=== PATIENT | male | born 1960 | race Caucasian/White ===

== ENCOUNTER 2018-11-28 09:33 | Emergency (ER) | payer OTHER ==
[2018-11-28] MEDS ORDERED: Ondansetron PF 4 MG/2 ML Vial ONE (10:17)
[2018-11-28] MEDS ORDERED: Ketorolac Tromethamine 30 MG/ML VIAL ONE (10:17)
[2018-11-28 10:37] LABS: #Basophils 0.1 thou/uL (0.0-0.2); #Eosinphils 0.3 thou/uL (0.0-0.7); #Lymphocytes 1.6 thou/uL (1.20-3.40); #Monocytes 0.4 thou/uL (0.11-0.59); #Neutrophils 3.6 thou/uL (1.40-6.50); %Basophils 1.5 % (0.0-1.0); %Eosinophils 4.2 % (0.0-10.0); %Lymphocytes 27.6 % (21.0-51.0); %Monocytes 6.8 % (0.0-10.0); %Neutrophils 59.9 % (42.0-75.0); Hemoglobin 14.9 g/dL (14.0-18.0); Mean Corpuscular HGB CONC 35.1 g/dL (32.0-36.0); Mean Corpuscular Volume 85.5 fL (78.0-98.0); Mean Platelet Volume 8.3 fL (7.4-10.4); Platelet Count 175 thou/uL (130-400); RBC Distribution Width 11.5 % (11.5-14.5); Red Blood Cell (RBC) Count 4.95 mill/uL (4.70-6.10)
[2018-11-28 10:38] LABS: Bilirubin Negative (Negative); Blood, Urine Negative (Negative); Glucose, Urine (Dipstick) 250 mg/dL (Negative); Leukocyte Negative (Negative); Nitrite Negative (Negative); Protein, Urine (Dipstick) Negative (Neg-Trace); Urobilinogen 0.2 mg/dL (0.2-1.0)
[2018-11-28 10:39] LABS: Clarity Clear (Clear)
[2018-11-28 11:25] LABS: ALT (SGPT) 30 U/L (8-55); AST (SGOT) 35 U/L (5-34); Albumin 4.3 g/dL (3.5-5.0); Alkaline Phosphatase 65 U/L (40-150); Anion Gap 18 mmol/L (10-20); BUN (Urea Nitrogen) 13 mg/dL (8.4-25.7); Bilirubin, Total 0.5 mg/dL (0.2-1.2); Calc. Creatinine Clearance 0 mL/min (70-130); Calcium 9.4 mg/dL (7.8-10.44); Carbon Dioxide 21 mmol/L (22-29); Chloride 104 mmol/L (98-107); Estimated GFR-MDRD 83; Glucose 173 mg/dL (70-105); Potassium 5.6 mmol/L (3.5-5.1); Protein, Total 7.3 g/dL (6.0-8.3); Sodium 137 mmol/L (136-145)
--- NOTE | 2018-11-28 12:22 | CT ---
CT ABDOMEN AND PELVIS WITHOUT IV CONTRAST: Multiple axial tomograms were obtained through the abdomen and pelvis without IV enhancement. Oral c ontrast was not given. INDICATION: Abdominal pain. Left flank pain. History of kidney stones. FINDINGS: Lung bases clear. Liver, spleen, and pancreas unremarkable. Adrenal glands normal. There are numerous tiny nonobstructing calculi in the upper collecting structures of both kidneys. T hese numerous calculi measure in the 1-2 mm range and are too numerous to count. There is no evidence of hydronephrosis. The ureters are normal caliber. Urinary bladder is mildly d istended and appears unremarkable. Small bowel loops appear normal. Appendix appears normal. Colon unremarkable. No evidence of diver ticulitis. Aorta normal caliber. There is degenerative spine change. Prominent degenerative change results in central canal stenosis at L4-5. IMPRESSION: Numerous tiny nonobstructing calculi in the upper collecting structures of both kidneys. There is no evidence of ureteral calculus or hydronephrosis. No other evidence of acute process. POS: [facility]
== END 2018-11-28 12:50 | disposition home or self-care (01) ==
LOC: ERS 09:33
DX: N20.0 Calculus of kidney (principal); E87.6 Hypokalemia; F17.210 Nicotine dependence, cigarettes, uncomplicated; E11.9 Type 2 diabetes mellitus without complications; Z87.442 Personal history of urinary calculi; Z79.891 Long term (current) use of opiate analgesic
CPT/HCPCS: 74176; 80053; 81003; 85025; 87086; 96361; 96374; 96375; J1885; J2405

== ENCOUNTER 2019-01-13 13:50 | Emergency (ER) | payer OTHER ==
--- NOTE | 2019-01-13 16:00 | CT ---
CT BRAIN WITHOUT CONTRAST: INDICATIONS: Hit in head at work with a pipe. The patient was wearing a hard hat, with right-sided head pain. COMPARISON: None. FINDINGS: The skull and extracranial soft tissues appear within normal limits. The mastoid air cells and paran holly sinuses appear clear. No definite acute infarct, hemorrhage, or hydrocephalus is present. There is mild chronic small vess el white matter ischemic change. No midline shift is evident. IMPRESSION: No acute intracranial abnormality. POS: [facility]
--- NOTE | 2019-01-13 16:05 | CT ---
CT CERVICAL SPINE WITHOUT CONTRAST: 01/13/19 INDICATION: Hit in head with a pipe at work with neck pain. COMPARISON: None. FINDINGS: There is advanced disc degenerative disease at C5-6 and C6-7. There is slight anterior translation of C4 on C5. There is multilevel facet osteoarthritic change. No acute fracture or subluxation is evide nt. Osseous central canal appears relatively well preserved. Prevertebral soft tissues appear within normal limits. Craniocervical junction appears within normal limits. IMPRESSION: 1. No acute osseous abnormality. 2. Moderate spondylosis of the cervical spine with anterior translation of C4 on C5 which is lik manuel degenerative in nature. POS: [facility]
== END 2019-01-13 17:30 | disposition home or self-care (01) ==
LOC: ERS 13:50
DX: S09.90XA Unspecified injury of head, initial encounter (principal); E11.9 Type 2 diabetes mellitus without complications; F17.210 Nicotine dependence, cigarettes, uncomplicated; Z79.899 Other long term (current) drug therapy; W22.8XXA Striking against or struck by other objects, initial encounter
CPT/HCPCS: 70450; 72125

== ENCOUNTER 2019-06-27 13:37 | Emergency (ER) | payer OTHER ==
--- NOTE | 2019-06-27 14:19 | RAD ---
EXAM: 2 views of the right tibia/fibula HISTORY: Leg pain after injury yesterday COMPARISON: None FINDINGS: There is no evidence of acute fracture or dislocation. No soft tissue swelling is seen. No degenerative changes are seen in the knee or ankle. IMPRESSION: No evidence of acute osseous abnormality.
--- NOTE | 2019-06-27 14:20 | RAD ---
EXAM: 3 views of the right foot HISTORY: Foot pain after injury yesterday COMPARISON: None FINDINGS: 3 views of the right foot shows no evidence of acute fracture or dislocation. Mild dorsal s oft tissue swelling is seen. No degenerative changes are present. IMPRESSION: No evidence of acute osseous abnormality.
== END 2019-06-27 15:15 | disposition home or self-care (01) ==
LOC: ERS 13:37
DX: S90.31XA Contusion of right foot, initial encounter (principal); S90.01XA Contusion of right ankle, initial encounter; F17.210 Nicotine dependence, cigarettes, uncomplicated; E11.9 Type 2 diabetes mellitus without complications; Z79.899 Other long term (current) drug therapy; V04.90XA Pedestrian on foot injured in collision with heavy transport vehicle or bus, unspecified whether traffic or nontraffic accident, initial encounter